=== PATIENT | female | born 1975 | race Caucasian/White ===

== ENCOUNTER 2016-12-21 05:41 | Inpatient (IN) | payer OTHER ==
[2016-12-20 15:19] VITALS: BMI 31.2
[2016-12-21] VITALS (18 sets, daily range): BP systolic 90–132; BP diastolic 51–83; PULSE 62–95; RESP 12–18; Ht 154.9 cm; Wt 68.5 kg
[~2016-12-21] VITALS: Ht 154.9 cm; Wt 68.5 kg
--- NOTE | 2016-12-21 05:16 | PREOPHP ---
DATE OF ADMISSION: 12/21/2016 HISTORY OF PRESENT ILLNESS: This is a 41-year-old lady, 2, para 2. Her last normal menstru al period was a few days prior to admission. She was admitted for exploratory laparotomy, supracerv ical hysterectomy, possible CARMEN and BSO. This patient is known to have 16-week size fibroid. She b melanie very heavy with her period that is lasting for at least 10 days. She also has chronic pelvic pain and lower abdominal pain for the last many months and getting worse up to the time of admission . At times she bleeds twice a month. She is known to be anemic and known to have fibroid uterus. She does not want to have any more children, so she wanted to have the supracervical hysterectomy. She never had any abnormal Pap smear before. PAST PERSONAL HISTORY: No history of diabetes, TB, asthma. ALLERGIES: NO ALLERGIES. SOCIAL HISTORY: The patient does not smoke. She does not drink. MEDICATIONS: She takes iron for her anemia. GYNECOLOGICAL HISTORY: She had menarche at the age of 13, every 28 days interval, 3 to 4 days' dura tion and moderate in amount. FAMILY HISTORY: Mother has high blood pressure, and father has diabetes. Grandmother on mother's s theron has heart disease. Grandmother had cancer as well. There is family history of hyperlipidemia. She is 2, para 2 with 2 normal deliveries. SURGICAL HISTORY: Noncontributory. REVIEW OF SYSTEMS: CARDIOVASCULAR: No chest pains. RESPIRATORY: No cough. GASTROINTESTINAL: No diarrhea, no vomiting. GENITOURINARY: No dysuria. PHYSICAL EXAMINATION: GENERAL: A conscious, coherent lady and in not acute distress. VITAL SIGNS: Her blood pressure 120/80, pulse rate 80 per minute, respirations 16 per minute. BREASTS, HEART AND LUNGS: Within normal limits. ABDOMEN: Soft. No organomegaly. PELVIC: The cervix firm, uterus about 16-week size and adnexa were negative for masses. RECTAL: Exam confirmed the pelvic findings. EXTREMITIES: No pedal edema. ADMITTING DIAGNOSES: 1. Symptomatic fibroid uterus. 2. Chronic pelvic pain. 3. Menometrorrhagia. 4. Anemia. PLAN: The patient is planned to have supracervical hysterectomy, possible CARMEN and BSO. The procedu res were explained to the patient, and she understood everything totally. The risks, benefits and a lternatives were discussed with her as well. Dictated By: VADIM MONTEMAYOR/CAROLYN Conf#: [id number] DID#: [id number]
[2016-12-21] MEDS ORDERED: morphine SULFATE/PF (10 MG/10 ML) INJ ONE (07:55)
[2016-12-21] MEDS ORDERED: MIDAZOLAM 1 MG/ML 2 ML INJ ONE (07:55)
[2016-12-21] MEDS ORDERED: METOCLOPRAMIDE 10 MG INJ ONE (07:55)
[2016-12-21] MEDS ORDERED: CEFAZOLIN 1 GM INJ ONE (08:14)
[2016-12-21] MEDS ORDERED: FENTAnyl 50 MCG/ML VIAL ONE (08:17)
[2016-12-21] MEDS ORDERED: KETOROLAC 30 MG INJ ONE (08:24)
[2016-12-21] MEDS ORDERED: EPHEDrine SULFATE 50 MG/5 ML SYG ONE (08:24)
[2016-12-21] MEDS ORDERED: KETOROLAC 30 MG INJ IV PRN (09:00)
[2016-12-21] MEDS ORDERED: HYDROmorphONE 1 MG/ML SYG IV PRN ×3 (09:00)
[2016-12-21] MEDS ORDERED: HYDROmorphONE (0.2 MG/ML) 10ML SYG IV PRN ×2 (09:00)
[2016-12-21] MEDS ORDERED: NALOXONE (0.4 MG/ML) INJ IV PRN (09:00)
[2016-12-21] MEDS ORDERED: MEPERIDINE 25 MG INJ IV PRN (09:00)
[2016-12-21] MEDS ORDERED: ONDANSETRON 4 MG INJ IV PRN ×3 (09:00→10:00)
[2016-12-21] MEDS ORDERED: METOCLOPRAMIDE 10 MG INJ IV PRN (09:00)
[2016-12-21] MEDS ORDERED: DIPHENHYDRAMINE 50 MG INJ IV PRN ×2 (09:00)
[2016-12-21] MEDS ORDERED: ONDANSETRON 4 MG INJ ONE (09:17)
[2016-12-21] MEDS: HYDROmorphONE (0.2 MG/ML) 10ML SYG IV PRN ×5 (09:45→10:56)
[2016-12-21] MEDS ORDERED: BISACODYL 10 MG SUPP PR PRN (10:00)
[2016-12-21] MEDS: LACTATED RINGER'S 1,000 ML IV SCH ×2 (14:36→23:00)
[2016-12-22 06:15] LABS: ADD SCAN DIFF NO
[2016-12-22 06:34] LABS: ABNORMAL IP MESSAGE 1; BASOPHILS % 0.6 % (0.0-2.0); EOSINOPHILS # 0.1 10^3/ul (0.0-0.5); EOSINOPHILS % 0.9 % (0.0-7.0); HEMATOCRIT 30.5 % (37.0-47.0); HEMOGLOBIN 8.7 g/dl (12.0-16.0); LYMPHOCYTES # 1.2 10^3/ul (0.8-2.9); LYMPHOCYTES % 21.7 % (15.0-51.0); MEAN CORPUSCULAR HEMOGLOBIN 23.3 pg (29.0-33.0); MEAN CORPUSCULAR HGB CONC 28.5 g/dl (32.0-37.0); MEAN CORPUSCULAR VOLUME 81.6 fl (82.0-101.0); MEAN PLATELET VOLUME 11.2 fl (7.4-10.4); MONOCYTE # 0.4 10^3/ul (0.3-0.9); MONOCYTES % 8.2 % (0.0-11.0); NEUTROPHIL # 3.7 10^3/ul (1.6-7.5); NEUTROPHILS % 68.6 % (39.0-77.0); PLATELET COUNT 257 10^3/UL (140-415); RED BLOOD COUNT 3.74 10^6/ul (4.20-5.40); RED CELL DISTRIBUTION WIDTH 15.9 % (11.5-14.5); WHITE BLOOD COUNT 5.4 10^3/ul (4.8-10.8)
[2016-12-22 07:04] LABS: POTASSIUM 4.3 mmol/L (3.5-5.1)
[2016-12-22 07:06] LABS: CREATININE 0.62 mg/dl (0.44-1.00)
[2016-12-22 07:58] VITALS: BP 100/60; RESP 16
[2016-12-22] MEDS: LACTATED RINGER'S 1,000 ML IV SCH ×5 (08:38→23:00)
--- NOTE | 2016-12-22 09:25 | PN ---
Date/Time of Note Date/Time of Note DATE: 12/22/16 TIME: 09:23 Assessment/Plan VTE Prophylaxis VTE Prophylaxis Intervention: ambulation Lines/Catheters IV Catheter Type (from Nrsg): Peripheral IV Urinary Cath still in place: Yes Subjective 24 Hr Interval Summary Free Text/Dictation Anesthesia Note: A 41 year female s/p hysterectomy with GA and spinal duramorph for post op pain doing well, no N/V,itching, headache. oliverio is clean. care per surgery team. Exam/Review of Systems Vital Signs Vitals Vital Signs Date Time Temp Pulse Resp B/P Pulse Ox O2 Delivery O2 Flow Rate FiO2 12/22/16 07:58 98.8 74 16 100/60 100 12/21/16 20:00 Room Air 12/21/16 12:30 2.0 Intake and Output 12/21/16 12/21/16 12/22/16 15:00 23:00 07:00 Intake Total 1300 ml 325 ml 1175 ml Output Total 350 ml 200 ml 700 ml Balance 950 ml 125 ml 475 ml Results Result Diagram: 12/22/16 0545 12/22/16 0545 Results 24 hrs Laboratory Tests Test 12/22/16 05:45 White Blood Count 5.4 Red Blood Count 3.74 L Hemoglobin 8.7 L Hematocrit 30.5 L Mean Corpuscular Volume 81.6 L Mean Corpuscular Hemoglobin 23.3 L Mean Corpuscular Hemoglobin Concent 28.5 L Red Cell Distribution Width 15.9 H Platelet Count 257 Mean Platelet Volume 11.2 H Neutrophils % 68.6 Lymphocytes % 21.7 Monocytes % 8.2 Eosinophils % 0.9 Basophils % 0.6 Nucleated Red Blood Cells % 0.0 Neutrophils # 3.7 Lymphocytes # 1.2 Monocytes # 0.4 Eosinophils # 0.1 Basophils # 0.0 Nucleated Red Blood Cells # 0.0 Sodium Level 136 Potassium Level 4.3 Chloride Level 104 Carbon Dioxide Level 23 Anion Gap 13 Blood Urea Nitrogen 5 L Creatinine 0.62 Glucose Level 83 Calcium Level 8.0 L Medications Medications Current Medications Bisacodyl (Dulcolax Supp) 10 mg BID PRN MI CONSTIPATION; Start 12/21/16 at 10: 00 Ondansetron HCl (Zofran Inj) 4 mg Q4H PRN IV NAUSEA AND/OR VOMITING; Start at 10:00 Magnesium Hydroxide (Milk Of Mag) 30 ml BID PO ; Start 12/22/16 at 21:00 Oxycodone/ Acetaminophen (Percocet (5/ 325)) 1 tab Q3H PRN PO MILD PAIN LEVEL 1 -3; Start 12/22/16 at 10:00 Oxycodone/ Acetaminophen (Percocet (5/ 325)) 1 tab Q3H PRN PO PAIN LEVEL 6-10; Start 12/22/16 at 10:00 Oxycodone/ Acetaminophen 2 tab 2 tab Q3H PRN PO SEVERE PAIN LEVEL 7-10; Start 12/22/16 at 10:00 Lactated Ringer's (Lr) 1,000 ml @ 125 mls/hr Q8H IV Last administered on t 08:38; Admin Dose 125 MLS/HR; Start 12/21/16 at 15:00 IRAM BENAVIDES MD Dec 22, 2016 09:25
[2016-12-22] MEDS ORDERED: OXYCODONE/ACETAMINOPHEN (5/325) TAB PO PRN ×2 (10:00)
[2016-12-22] MEDS: OXYCODONE/ACETAMINOPHEN (5/325) TAB PO PRN ×2 (10:36→14:32)
[2016-12-22] MEDS ORDERED: BISACODYL 10 MG SUPP PR ONE ×2 (11:30→17:00)
[2016-12-22] MEDS ORDERED: MAGNESIUM HYDROXIDE 30ML CUP PO ONE ×2 (11:30→17:00)
[2016-12-22 13:00] VITALS: BP 108/63; PULSE 72; RESP 18
[2016-12-22 17:00] VITALS: BP 113/61; PULSE 74; RESP 18
[2016-12-22 19:46] VITALS: BP 106/61; RESP 18
[2016-12-22] MEDS ORDERED: MAGNESIUM HYDROXIDE 30ML CUP PO SCH (21:00)
[2016-12-23 00:43] VITALS: BP 110/61; RESP 18
[2016-12-23] MEDS: LACTATED RINGER'S 1,000 ML IV SCH ×2 (01:03→15:00)
[2016-12-23 03:50] VITALS: BP 115/87; PULSE 81; RESP 20
[2016-12-23 06:13] LABS: ADD SCAN DIFF NO
[2016-12-23 06:17] LABS: BASOPHILS % 0.5 % (0.0-2.0); EOSINOPHILS # 0.1 10^3/ul (0.0-0.5); EOSINOPHILS % 1.4 % (0.0-7.0); HEMATOCRIT 28.8 % (37.0-47.0); HEMOGLOBIN 8.5 g/dl (12.0-16.0); LYMPHOCYTES # 0.8 10^3/ul (0.8-2.9); LYMPHOCYTES % 11.8 % (15.0-51.0); MEAN CORPUSCULAR HEMOGLOBIN 23.9 pg (29.0-33.0); MEAN CORPUSCULAR HGB CONC 29.5 g/dl (32.0-37.0); MEAN CORPUSCULAR VOLUME 81.1 fl (82.0-101.0); MEAN PLATELET VOLUME 11.6 fl (7.4-10.4); MONOCYTE # 0.5 10^3/ul (0.3-0.9); MONOCYTES % 6.9 % (0.0-11.0); NEUTROPHIL # 5.2 10^3/ul (1.6-7.5); NEUTROPHILS % 79.1 % (39.0-77.0); PLATELET COUNT 265 10^3/UL (140-415); RED BLOOD COUNT 3.55 10^6/ul (4.20-5.40); RED CELL DISTRIBUTION WIDTH 16.2 % (11.5-14.5); WHITE BLOOD COUNT 6.6 10^3/ul (4.8-10.8)
[2016-12-23 07:43] VITALS: BP 116/71; RESP 18
[2016-12-23] MEDS: OXYCODONE/ACETAMINOPHEN (5/325) TAB PO PRN (13:40)
--- NOTE | 2016-12-23 15:40 | OPR ---
DATE OF OPERATION: 12/21/2016 PREOPERATIVE DIAGNOSES: 1. Chronic pelvic pain. 2. Pelvic relaxation. 3. Menorrhagia. 4. Fibroid uterus. POSTOPERATIVE DIAGNOSES: 1. Chronic pelvic pain. 2. Pelvic relaxation. 3. Menorrhagia. 4. Fibroid uterus. OPERATION PERFORMED: Exploratory laparotomy, supracervical hysterectomy, and vaginal vault suspensi on. SURGEON: Vadim Peñaloza MD PRESS TENDER SHORT GOODS: Dr. Christiane MD ANESTHESIA: General. OPERATIVE TECHNIQUE: Under general anesthesia, the patient was prepped and draped in the usual [facility] ion for abdominal surgery. After checking for the effect of the anesthesia, a Pfannenstiel 12 cm sk in incision was performed. The incision was carried from the skin up to the fascia. Upon opening t he skin up to the fascia, small blood vessels were noted to be oozing and these were all cauterized. Fascia was opened transversely followed by splitting the muscles vertically and the peritoneum perico tically. Upon opening the abdominal cavity, the uterus was noted to be about 16 to 18 weeks' size a nd irregular with multiple fibroids noted. Then, the self-retaining retractor was put in place and the bladder blade was put in place. The bowels were packed away from the operative field with the a id of 6 rolled wet lap sponges. The upper blade was put in place. Then, two 18 Kochers were placed , one at the paratubal and paraovarian ligament for traction. The left round ligament was grasped w ith 2 Kochers and cut. A stick tie with 0 Vicryl was used and tied. The left broad ligament was sk eletonized for the development of the bladder flap. The left utero-ovarian and left uterotubal liga ments were grasped with 2 Williams clamps and pulled back with a straight Radha and cut. Free tie wi th 0 Vicryl was used followed by Williams suture. Bleeders were checked and there was no bleeding not ed. Same thing was done on the right side. The right round ligament was grasped with 2 Kochers and cut. A stick tie with 0 Vicryl was used and tied. The right broad ligament was skeletonized for t he development of the bladder flap. The right utero-ovarian and right uterotubal ligaments were gra sped with 2 Williams clamps and pulled back with a straight Radha and cut. At first, a free tie with 0 Vicryl was used followed by Williams suture. Bleeders were checked and there was no bleeding noted . Then, the broad ligaments on both sides were skeletonized for the development of the bladder flap . Then, the left uterine vessels were brought to view. The left uterine vessels were grasped with 2 Williams clamps and pulled back with a straight Radha and cut. A stick tie with 0 Vicryl was used on each clamp. Same thing was done on the right side. Bleeders were checked and there was no bleed ing noted. Once again, the bladder was from the cervix by sharp and blunt dissection. Ab out 2 more Kochers were placed at the paracervical tissue on the left and right side and clamped. T he tissue was cut and a stick tie with 0 Vicryl was used. Bleeders were checked and there was no bl eeding noted. The pelvis was noted to be deep. Then the body of the uterus was excised. The remai nick cervix was grasped with 2 single-toothed tenaculums. Then, once again the bladder was separate d from the cervix by sharp and blunt dissection. About 6 more Kochers were placed at the paracervic al tissue on the left and right side and each time the Radha was put in, the bladder was from the cervix by sharp and blunt dissection ____ Radha. A stick tie with 0 Vicryl was used. No bleeders were noted. Again, then the ____ of the cervix was excised. Then, the remaining cervix wa s grasped with 2 single-tooth tenaculums. The remaining cervix was sutured in 3 layers. Continuous suture was used to close the cervix. A 0 Vicryl was used. The right angle of the cervix was sutur ed with the right paracervical tissue and, after checking for any bleeders in which there were none, in turn tied with the right round ligament for vaginal vault suspension. Same thing was done on e left side. Irrigation was done to check for any bleeders in all the stumps and there was no bleed ing noted. After checking for any bleeders, in which there were none, and after correct sponge coun t, needle count, and instrument count, the abdomen was closed in the usual fashion using 0 Vicryl fo r the peritoneum, 0 Vicryl for the muscle, for the fascia, 0 Vicryl continuous stitch was used follo wed by few [id number] sutures. For the subcutaneous tissue, it was closed with 3-0 Vicryl and the skin was closed with 3-0 Vicryl, subcuticular suture was used. The patient tolerated the proced ure well. Estimated blood loss about 200 mL. Vital signs were stable during and after the procedur e. Dictated By: VADIM PEÑALOZA MD NS/NTS Conf#: [id number] DID#: [id number] CC: VADIM PEÑALOZA MD;*EndCC*
[2016-12-23 20:03] VITALS: BP 111/73; RESP 16
--- NOTE | 2016-12-23 20:28 | PN ---
DATE: 12/23/2016 TIME: 8 a.m. SUBJECTIVE: The patient feels good. Less incisional pain. Good bowel movement and good urine outp ut. OBJECTIVE: VITAL SIGNS: She is afebrile. Vital signs stable. ABDOMEN: Soft. Wound dry. Bowel sounds good. EXTREMITIES: No calf tenderness. ASSESSMENT: Postop day #2. PLAN: Home today. To clinic in 2 weeks. Prescription given for pain. She was counseled. She was instructed. FINAL DIAGNOSES: 1. Fibroid uterus. 2. Chronic pelvic pain. 3. Pelvic relaxation. 4. Menorrhagia. Dictated By: VADIM SUH MD NS/NTS Conf#: [id number] DID#: [id number] CC: VADIM SUH MD;*End*
--- NOTE | 2016-12-23 20:40 | PN ---
DATE: 12/22/2016 TIME: 10:00 a.m. SUBJECTIVE: The patient complaining of incisional pain. She has good urine output and good gas per rectal. OBJECTIVE VITAL SIGNS: She is afebrile. Vital signs stable. LUNGS: Clear. HEART: Normal sinus rhythm. ABDOMEN: Soft. Wound dry. Bowel sounds good. EXTREMITIES: No calf tenderness. ASSESSMENT: Postoperative day #1. PLAN: CBC tomorrow morning. Diet as tolerated. Patient counseled. Dictated By: VADIM MONTEMAYOR/CAROLYN Conf#: [id number] DID#: [id number]
== END 2016-12-23 19:45 | disposition home or self-care (01) | DRG 743 ==
LOC: REC 05:41 → MS2 12:05
PROVIDERS: ADMIT Obstetrics & Gynecology; ATTEND Obstetrics & Gynecology
PROC: 0UBC0ZZ Excision of Cervix, Open Approach (ICD-10-PCS; 2016-12-21)
PROC: 0USG0ZZ Reposition Vagina, Open Approach (ICD-10-PCS; 2016-12-21)
PROC: 0UT90ZZ Resection of Uterus, Open Approach (ICD-10-PCS; principal; 2016-12-21 08:00)
DX: N92.1 Excessive and frequent menstruation with irregular cycle (principal); D25.9 Leiomyoma of uterus, unspecified; R10.2 Pelvic and perineal pain; D64.9 Anemia, unspecified; N81.89 Other female genital prolapse
CPT/HCPCS: 80048; 85025; 86850; 86900; 86901; 88309; J0690; J1170; J1885; J2175; J2250; J2274; J2405; J2765; J3010; J7120